=== PATIENT | male | born 2000 | race Caucasian/White ===

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

== ENCOUNTER 2022-10-03 12:52 | Emergency (ER) | payer MEDICAID, OTHER ==
[2022-10-03 13:00] VITALS: BP 130/91
--- OUTSIDE RECORDS SUMMARY | 2022-10-03 13:12 | EXTERNAL MEDICAL SUMMARY RPT | Continuity of Care Document ---
:2000 Author Organization [facility] Address [address] [place] [address] Phone Care Team Providers Name Role Phone Maykel Carter Unavailable Unavailable Allergies No information. Encounters No information. Functional Status No information. Immunizations No information. Medications date description facility [id number] Azithromycin [facility] [id number] Clindamycin Phosphate [facility] [id number] Famotidine [facility] [id number] Loratadine [facility] Problems No information. Procedures No information. Results/Labs test date author facility value unit interpret ation Result panel 1 (unknown) (no (unknown) (unknown) (no value) (units (unk nown) date) unknown) (unknown) (no (unknown) (unknown) [place], [place] (units ( unknown) date) [id number] unknown) (unknown) (no (unknown) (unknown) Draft (units (unkno wn) date) unknown) (unknown) (no (unknown) (unknown) Family Practice (units (unknown) date) Office Visit unknown) (unknown) (no (unknown) (unknown) [facility] (units (unknown) date[facility] unknown) (unknown) (no (unknown) (unknown) (no value) (units (unk nown) date) unknown) (unknown) (no (unknown) (unknown) 07/12/22 (units (unkno wn) date) unknown) (unknown) (no (unknown) (unknown) [id number] (units (unkno wn) date) unknown) (unknown) (no (unknown) (unknown) Age/Sex: 21 / M (units (unknown) date) Date of Service: unknown) (unknown) (no (unknown) (unknown) Attending Dr: (units ( unknown) date) Maykel Carter MD unknown) (unknown) (no (unknown) (unknown) : 2000 (units (unknown) date) Acct:[id number] unknown) (unknown) (no (unknown) (unknown) Dept at (units (unkno wn) date) . unknown) (unknown) (no (unknown) (unknown) Documented By: (units (unknown) date) Maykel Carter MD unknown) 07/12/22 1513 (unknown) (no (unknown) (unknown) Intake (units (unkno wn) date) unknown) (unknown) (no (unknown) (unknown) Intake performed (units (unknown) date) by: unknown) Melissa Fowler (unknown) (no (unknown) (unknown) Intake- Clincial (units (unknown) date) Staff unknown) (unknown) (no (unknown) (unknown) Loc: [facility] (units (unkno wn) date) unknown) (unknown) (no (unknown) (unknown) Patient: (units (unkno wn) date) Ismael Decker unknown) MR#: [id number] (unknown) (no (unknown) (unknown) Reason For Visit (units (unknown) date) unknown) (unknown) (no (unknown) (unknown) Signed By: (units (unk nown) date) unknown) (unknown) (no (unknown) (unknown) This note may (units ( unknown) date) have been all or unknown) partially generated using voice recognition (unknown) (no (unknown) (unknown) 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 (units (unknown) date) If there are any unknown) questions, please contact the Medical Records (unknown) (no (unknown) (unknown) may occur. (units (unk nown) date) Occasional unknown) wrong-word or 'sound-alike' substitutions may have (unknown) (no (unknown) (unknown) occurred due to (units (unknown) date) the inherent unknown) limitations of voice recognition software. Please (unknown) (no (unknown) (unknown) read the note (units ( unknown) date) carefully and unknown) recognize, using context, where these substitutions (unknown) (no (unknown) (unknown) software. (units (unkn own) date) Although every unknown) effort is made to edit content, reject opener and filler errors Result panel 2 (unknown) (no (unknown) (unknown) (no value) (units (unk nown) date) unknown) (unknown) (no (unknown) (unknown) (no value) (units (unk nown) date) unknown) (unknown) (no (unknown) (unknown) (no value) (units (unk nown) date) unknown) (unknown) (no (unknown) (unknown) 07/12/22 (units (unkno wn) date) unknown) (unknown) (no (unknown) (unknown) 15:23 (units (unkno wn) date) unknown) (unknown) (no (unknown) (unknown) [place], [place] (units ( unknown) date) [id number] unknown) (unknown) (no (unknown) (unknown) Draft (units (unkno wn) date) unknown) (unknown) (no (unknown) (unknown) Family Practice (units (unknown) date) Office Visit unknown) (unknown) (no (unknown) (unknown) [facility] (units ([facility] date[facility] unknown) (unknown) (no (unknown) (unknown) (no value) (units (unk nown) date) unknown) (unknown) (no (unknown) (unknown) 07/12/22 (units (unkno wn) date) unknown) (unknown) (no (unknown) (unknown) [id number] (units (unkno wn) date) unknown) (unknown) (no (unknown) (unknown) Accompanied by: (units (unknown) date) Self / Same As unknown) Patient (unknown) (no (unknown) (unknown) Age/Sex: 21 / M (units (unknown) date) Date of Service: unknown) (unknown) (no (unknown) (unknown) Allergies (units (unkn own) date) unknown) (unknown) (no (unknown) (unknown) Attending Dr: (units ( unknown) date) Maykel Carter MD unknown) (unknown) (no (unknown) (unknown) BMI 27.6 (units (unkno wn) date) unknown) (unknown) (no (unknown) (unknown) BP 112/64 (units (unkn own) date) unknown) (unknown) (no (unknown) (unknown) Blood Pressure (units (unknown) date) Location Lt unknown) brachial (unknown) (no (unknown) (unknown) : 2000 (units (unknown) date) Acct:[id number] unknown) (unknown) (no (unknown) (unknown) Dept at (units (unkno wn) date) . unknown) (unknown) (no (unknown) (unknown) Documented By: (units (unknown) date) Maykel Carter MD unknown) 07/12/22 1513 (unknown) (no (unknown) (unknown) Has seen (units (unkno wn) date) dermatology in unknown) the past for this condition, recently got insurance (unknown) (no (unknown) (unknown) Health (units (unkno wn) date) Management unknown) (unknown) (no (unknown) (unknown) Health (units (unkno wn) date) Management unknown) reviewed with patient: No (unknown) (no (unknown) (unknown) Height 5 ft 9 in (units (unknown) date) unknown) (unknown) (no (unknown) (unknown) Intake (units (unkno wn) date) unknown) (unknown) (no (unknown) (unknown) Intake Note: (units (u nknown) date) unknown) (unknown) (no (unknown) (unknown) Intake performed (units (unknown) date) by: unknown) Melissa Fowler (unknown) (no (unknown) (unknown) Intake- Clincial (units (unknown) date) Staff unknown) (unknown) (no (unknown) (unknown) Loc: [facility] (units (unkno wn) date) unknown) (unknown) (no (unknown) (unknown) Medications (units (un known) date) unknown) (unknown) (no (unknown) (unknown) 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 ( unknown) date) presents today to unknown) establish care and requesting dermatology (unknown) (no (unknown) (unknown) No Known Drug (units ( unknown) date) Allergies Allergy unknown) (Unverified 07/12/22 15:22) (unknown) (no (unknown) (unknown) No Known Home (units ( unknown) date) Medications unknown) 07/12/22 [History Confirmed 07/12/22] (unknown) (no (unknown) (unknown) Oxygen Delivery (units (unknown) date) Method room air unknown) (unknown) (no (unknown) (unknown) PFSH (units (unkno wn) date) unknown) (unknown) (no (unknown) (unknown) Patient: (units (unkno wn) date) Ismael Decker unknown) MR#: [id number] (unknown) (no (unknown) (unknown) Position Sitting (units (unknown) date) unknown) (unknown) (no (unknown) (unknown) Pulse 80 (units (unkno wn) date) unknown) (unknown) (no (unknown) (unknown) Pulse Oximetry (units (unknown) date) (%) 98 unknown) (unknown) (no (unknown) (unknown) Pulse Source (units (u nknown) date) Monitor unknown) (unknown) (no (unknown) (unknown) Reason For Visit (units (unknown) date) unknown) (unknown) (no (unknown) (unknown) Respiration 16 (units (unknown) date) unknown) (unknown) (no (unknown) (unknown) Signed By: (units (unk nown) date) unknown) (unknown) (no (unknown) (unknown) Smoking Status: (units (unknown) date) Never smoker unknown) (unknown) (no (unknown) (unknown) States when he (units (unknown) date) takes a hot unknown) shower or when outside temp is cold (winter) he (unknown) (no (unknown) (unknown) Temp 97.1 F L (units ( unknown) date) unknown) (unknown) (no (unknown) (unknown) Temp Source (units (un known) date) Temporal Artery unknown) Scan (unknown) (no (unknown) (unknown) This note may (units ( unknown) date) have been all or unknown) partially generated using voice recognition (unknown) (no (unknown) (unknown) Tobacco + (units (unkn own) date) Substance Use unknown) (unknown) (no (unknown) (unknown) Tobacco Status (units (unknown) date) unknown) (unknown) (no (unknown) (unknown) Visit Reasons: (units (unknown) date) RESIDENT CAREGIVER,Acne, unknown) Dermatology referral (unknown) (no (unknown) (unknown) Vitals (units (unkno wn) date) unknown) (unknown) (no (unknown) (unknown) Weight 187 lb 4 (units (unknown) date) oz unknown) (unknown) (no (unknown) (unknown) alcohol intake: (units (unknown) date) current (1 drink unknown) every 2 years socially ) (unknown) (no (unknown) (unknown) develops hives (units (unknown) date) unknown) (unknown) (no (unknown) (unknown) have occurred. (units (unknown) date) If there are any unknown) questions, please contact the Medical Records (unknown) (no (unknown) (unknown) may occur. (units (unk nown) date) Occasional unknown) wrong-word or 'sound-alike' substitutions may have (unknown) (no (unknown) (unknown) occurred due to (units (unknown) date) the inherent unknown) limitations of voice recognition software. Please (unknown) (no (unknown) (unknown) read the note (units ( unknown) date) carefully and unknown) recognize, using context, where these substitutions (unknown) (no (unknown) (unknown) referral for (units (u nknown) date) acne unknown) (unknown) (no (unknown) (unknown) software. (units (unkn own) date) Although every unknown) effort is made to edit content, reject opener and filler errors (unknown) (no (unknown) (unknown) substance use (units (u nknown) date) type: former unknown) substance user (Quit 2020 ) and marijuana (Quit 2020) Result panel 3 (unknown) (no (unknown) (unknown) (no value) (units (unk nown) date) unknown) (unknown) (no (unknown) (unknown) Medications: (units (u nknown) date) unknown) (unknown) (no (unknown) (unknown) Orders: (units (unkno wn) date) unknown) (unknown) (no (unknown) (unknown) Status: Acute (units ( unknown) date) unknown) (unknown) (no (unknown) (unknown) (no value) (units (unk nown) date) unknown) (unknown) (no (unknown) (unknown) (no value) (units (unk nown) date) unknown) (unknown) (no (unknown) (unknown) 07/12/22 (units (unkno wn) date) unknown) (unknown) (no (unknown) (unknown) 07/18/22 0907 (units ( unknown) date) unknown) (unknown) (no (unknown) (unknown) 15:23 (units (unkno wn) date) unknown) (unknown) (no (unknown) (unknown) [facility] [id number] (unit s (unknown) date) unknown) (unknown) (no (unknown) (unknown) Family Practice (units (unknown) date) Office Visit unknown) (unknown) (no (unknown) (unknown) [facility] ([facility] unknown) (unknown) (no (unknown) (unknown) Signed (units (unkno wn) date) unknown) (unknown) (no (unknown) (unknown) apply each night (units (unknown) date) instead of benzoyl unknown) peroxide; use for 2 weeks straight as (unknown) (no (unknown) (unknown) apply to affected (units (unknown) date) areas in morning at unknown) minimum and could increase to twice (unknown) (no (unknown) (unknown) don't start until (units (unknown) date) after at least 1 unknown) week on antibiotic by mouth for acne; will (unknown) (no (unknown) (unknown) (no value) (units (unk nown) date) unknown) (unknown) (no (unknown) (unknown) (1) Chronic (units (un known) date) urticaria: unknown) (unknown) (no (unknown) (unknown) 07/12/22 (units (unkno wn) date) unknown) (unknown) (no (unknown) (unknown) 07/12/22 [Rx (units (u nknown) date) Confirmed 07/12/22] unknown) (unknown) (no (unknown) (unknown) 21-year-old male (units (unknown) date) with marked acne unknown) involving the face. Previous history on a (unknown) (no (unknown) (unknown) [id number] (units (unkno wn) date) unknown) (unknown) (no (unknown) (unknown) Accompanied by: (units (unknown) date) Self / Same As unknown) Patient (unknown) (no (unknown) (unknown) Acne vulgaris (units ( unknown) date) unknown) (unknown) (no (unknown) (unknown) Acne. Multiple past (unit s (unknown) date) treatment modalities unknown) either temporarily helpful or failed. (unknown) (no (unknown) (unknown) Age/Sex: 21 / M (units (unknown) date) Date of Service: unknown) (unknown) (no (unknown) (unknown) Alert, pleasant, no (unit s (unknown) date) distress. Classic unknown) papular facial acne with some scarring. (unknown) (no (unknown) (unknown) Allergies (units (unkn own) date) unknown) (unknown) (no (unknown) (unknown) Assessment + Plan (units (unknown) date) unknown) (unknown) (no (unknown) (unknown) Attending Dr: Maykel (units (unknown) date) Sachi Carter MD unknown) (unknown) (no (unknown) (unknown) BEDTIME 45 grams (units (unknown) date) 3RF unknown) (unknown) (no (unknown) (unknown) BMI 27.6 (units (unkno wn) date) unknown) (unknown) (no (unknown) (unknown) BP 112/64 (units (unkn own) date) unknown) (unknown) (no (unknown) (unknown) Blood Pressure (units (unknown) date) Location Lt brachial unknown) (unknown) (no (unknown) (unknown) Chief Complaint (units (unknown) date) unknown) (unknown) (no (unknown) (unknown) Chief Complaint: (units (unknown) date) Acne unknown) (unknown) (no (unknown) (unknown) Chronic urticaria (units (unknown) date) unknown) (unknown) (no (unknown) (unknown) : 2000 (units (unknown) date) Acct:[id number] unknown) (unknown) (no (unknown) (unknown) Dept at (units (unkno wn) date) . unknown) (unknown) (no (unknown) (unknown) Details: (units (unkno wn) date) unknown) (unknown) (no (unknown) (unknown) Discussed options (units (unknown) date) awaiting Dermatology unknown) referral. For now will go with (unknown) (no (unknown) (unknown) Documented By: (units (unknown) date) Maykel Carter MD unknown) 07/12/22 1513 (unknown) (no (unknown) (unknown) Exam (units (unkno wn) date) unknown) (unknown) (no (unknown) (unknown) Exam Narrative (units (unknown) date) unknown) (unknown) (no (unknown) (unknown) Exam Narrative: (units (unknown) date) unknown) (unknown) (no (unknown) (unknown) HPI (units (unkno wn) date) unknown) (unknown) (no (unknown) (unknown) Has seen (units (unkno wn) date) dermatology in the unknown) past for this condition, recently got insurance (unknown) (no (unknown) (unknown) Health Management (units (unknown) date) unknown) (unknown) (no (unknown) (unknown) Health Management (units (unknown) date) reviewed with unknown) patient: No (unknown) (no (unknown) (unknown) Height 5 ft 9 in (units (unknown) date) unknown) (unknown) (no (unknown) (unknown) Intake (units (unkno wn) date) unknown) (unknown) (no (unknown) (unknown) Intake Note: (units (u nknown) date) unknown) (unknown) (no (unknown) (unknown) Intake performed (units (unknown) date) by: Melissa Fowler unknown) (unknown) (no (unknown) (unknown) Intake- Clincial (units (unknown) date) Staff unknown) (unknown) (no (unknown) (unknown) Loc: [facility] (units (unkno wn) date) unknown) (unknown) (no (unknown) (unknown) Medical History (units (unknown) date) (Updated 07/12/22 @ unknown) 16:13 by Maykel Carter MD) (unknown) (no (unknown) (unknown) Medications (units (un known) date) unknown) (unknown) (no (unknown) (unknown) 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 For his chronic urticaria could try (unknown) (no (unknown) (unknown) Patient: (units (unkno wn) date) Ismael Decker MR#: unknown) [id number] (unknown) (no (unknown) (unknown) Plan (units (unkno wn) date) unknown) (unknown) (no (unknown) (unknown) Position Sitting (units (unknown) date) unknown) (unknown) (no (unknown) (unknown) Pulse 80 (units (unkno wn) date) unknown) (unknown) (no (unknown) (unknown) Pulse Oximetry (%) (units (unknown) date) 98 unknown) (unknown) (no (unknown) (unknown) Pulse Source (units (u nknown) date) Monitor unknown) (unknown) (no (unknown) (unknown) Reason For Visit (units (unknown) date) unknown) (unknown) (no (unknown) (unknown) Referral Allergy (units (unknown) date) and Immunology L50.8 unknown) - Other urticaria (unknown) (no (unknown) (unknown) Referral (units (unkno wn) date) Dermatology L70.0 - unknown) Acne vulgaris (unknown) (no (unknown) (unknown) Referrals (units (unkn own) date) unknown) (unknown) (no (unknown) (unknown) Respiration 16 (units (unknown) date) unknown) (unknown) (no (unknown) (unknown) Signed By: (units (unk nown) date) <Electronically unknown) signed by Maykel Carter MD> (unknown) (no (unknown) (unknown) Small pinpoint (units (unknown) date) papules with some unknown) surrounding erythema. No apparent hives on (unknown) (no (unknown) (unknown) Smoking Status: (units (unknown) date) Never smoker unknown) (unknown) (no (unknown) (unknown) States when he (units (unknown) date) takes a hot shower unknown) or when outside temp is cold (winter) he (unknown) (no (unknown) (unknown) Temp 97.1 F L (units ( unknown) date) unknown) (unknown) (no (unknown) (unknown) Temp Source (units (un known) date) Temporal Artery Scan unknown) (unknown) (no (unknown) (unknown) This note may have (units (unknown) date) been all or unknown) partially generated using voice recognition (unknown) (no (unknown) (unknown) Tobacco + Substance (unit s (unknown) date) Use unknown) (unknown) (no (unknown) (unknown) Tobacco Status (units (unknown) date) unknown) (unknown) (no (unknown) (unknown) Visit Reasons: (units (unknown) date) RESIDENT CAREGIVER,Acne, Dermatology unknown) referral (unknown) (no (unknown) (unknown) Vitals (units (unkno wn) date) unknown) (unknown) (no (unknown) (unknown) Weight 187 lb 4 oz (units (unknown) date) unknown) (unknown) (no (unknown) (unknown) a regular rhythm (units (unknown) date) without obvious unknown) murmur gallop. (unknown) (no (unknown) (unknown) alcohol intake: (units (unknown) date) current (1 drink unknown) every 2 years socially ) (unknown) (no (unknown) (unknown) clindamycin (units (un known) date) phosphate 1 % unknown) topical solution 1 applic topical BID acne #60 mL (unknown) (no (unknown) (unknown) clindamycin (units (un known) date) phosphate 1% unknown) (unknown) (no (unknown) (unknown) clindamycin topical (unit s (unknown) date) and topical unknown) retinoid. Possible side effects discussed. (unknown) (no (unknown) (unknown) daily; use for 2 (units (unknown) date) weeks straight then unknown) up to twice daily as needed for acne; put (unknown) (no (unknown) (unknown) develops hives (units (unknown) date) unknown) (unknown) (no (unknown) (unknown) exposed, examined (units (unknown) date) surfaces today. unknown) Cardiorespiratory benign with clear lungs and (unknown) (no (unknown) (unknown) famotidine (units (unk nown) date) (Zantac-360 unknown) (famotidine)) (unknown) (no (unknown) (unknown) famotidine 20 mg (units (unknown) date) tablet (Zantac-360 unknown) (famotidine)) 20 mg PO BEDTIME #30 tabs (unknown) (no (unknown) (unknown) for Dermatology (units (unknown) date) referral for unknown) possible restart to oral retinoid. Also, of note, (unknown) (no (unknown) (unknown) frequent or severe (units (unknown) date) 10 mg PO DAILY 30 unknown) tabs 0RF (unknown) (no (unknown) (unknown) have occurred. If (units (unknown) date) there are any unknown) questions, please contact the Medical Records (unknown) (no (unknown) (unknown) histamine blockade (units (unknown) date) with H1 and H2 unknown) blockers as noted herein. Patient to keep (unknown) (no (unknown) (unknown) history of chronic (units (unknown) date) urticaria with no unknown) clear precipitant(s). Markedly pruritic (unknown) (no (unknown) (unknown) hives less frequent (unit s (unknown) date) or severe 20 mg PO unknown) BEDTIME 30 tabs 0RF (unknown) (no (unknown) (unknown) loratadine (units (unk nown) date) unknown) (unknown) (no (unknown) (unknown) loratadine 10 mg (units (unknown) date) tablet 10 mg PO unknown) DAILY #30 tabs 07/12/22 [Rx Confirmed 07/12/22] (unknown) (no (unknown) (unknown) may occur. (units (unk nown) date) Occasional unknown) wrong-word or 'sound-alike' substitutions may have (unknown) (no (unknown) (unknown) mg PO DAILY 30 tabs (unit s (unknown) date) 0RF unknown) (unknown) (no (unknown) (unknown) obvious food (units (u nknown) date) allergies. No report unknown) of rachel angioedema. (unknown) (no (unknown) (unknown) occurred due to the (unit s (unknown) date) inherent limitations unknown) of voice recognition software. Please (unknown) (no (unknown) (unknown) on before retin A (units (unknown) date) equivalent 1 applic unknown) topical BID 60 mL 3RF acne (unknown) (no (unknown) (unknown) oral retinoid. Some (unit s (unknown) date) scarring. unknown) Progressive or recurring despite above. Asks (unknown) (no (unknown) (unknown) physical when due. (units (unknown) date) unknown) (unknown) (no (unknown) (unknown) read the note (units ( unknown) date) carefully and unknown) recognize, using context, where these substitutions (unknown) (no (unknown) (unknown) referral for acne (units (unknown) date) unknown) (unknown) (no (unknown) (unknown) software. Although (units (unknown) date) every effort is made unknown) to edit content, reject opener and filler errors (unknown) (no (unknown) (unknown) substance use type: (units (unknown) date) former substance unknown) user (Quit 2020 ) and marijuana (Quit 2020) (unknown) (no (unknown) (unknown) track of episodes. (units (unknown) date) Referring to unknown) Dermatology and Allergy and Immunology. Annual (unknown) (no (unknown) (unknown) tretinoin 0.025 % (units (unknown) date) topical gel unknown) (Retin-A) 1 applic topical BEDTIME #45 grams (unknown) (no (unknown) (unknown) tretinoin 0.025% (units (unknown) date) (Retin-A) unknown) (unknown) (no (unknown) (unknown) trial; put this one (unit s (unknown) date) on after clindamycin unknown) antibiotic if used 1 applic topical (unknown) (no (unknown) (unknown) try this for 1 (units (unknown) date) month total (along unknown) with zantac) to see if recurring hives less (unknown) (no (unknown) (unknown) try this for 1 (units (unknown) date) month total (also unknown) prescribed loratidine) to see if recurring (unknown) (no (unknown) (unknown) try this for 1 (units (unknown) date) month total to see unknown) if recurring hives less frequent or severe 20 (unknown) (no (unknown) (unknown) variety of (units (unk nown) date) treatments including unknown) topical and oral antibiotic, topical retinoid, (unknown) (no (unknown) (unknown) with erythematous (units (unknown) date) and raised rash at unknown) times. Some environmental allergens. No Social History date description facility +0000 Never smoked tobacco (finding) [facility] Vital Signs date measurement value units +0000 BMI BMI 27.6 kg/m2 [id number] BP_diastolic BP_diastolic 64 mmHg [id number] BP_systolic BP_systolic 112 mmHg [id number] heart_rate heart_rate 80 /min [id number] height_metric height_metric 175.26 cm [id number] height_standard height_standard 69 in [id number] respiration_rate respiration_rate 16 /min [id number]+0000 temperature_metric temperature_metric 36.17 C [id number]+0000 temperature_standard temperature_standard 9 7.1 F [id number]+0000 weight_metric weight_metric 84.93 kg [id number] weight_standard weight_standard 187.24 lb
--- NOTE | 2022-10-03 13:59 | ED Physician Documentation ---
PD HPI SKIN - Stated complaint Stated Complaint: Rash - Chief complaint Chief Complaint: Wound - History obtained from History obtained from: Patient - Additional information Additional information: Patient is a 21-year-old male presenting for evaluation of a rash that has been present to his collar and neck starting approximately 3 days ago. He denies any known new exposures denies wearing any jewelry including necklaces. He has tried hydrocortisone cream without any improvement. The redness has seemed to increase. He denies redness or itchiness elsewhere. He Has applied ydud-aif-kclcbgh lotion to it because it did feel dry and was itching. Review of Systems Constitutional: denies: Fever Cardiac: denies: Chest pain / pressure Respiratory: denies: Dyspnea GI: denies: Abdominal Pain Skin: reports: Rash Musculoskeletal: denies: Back pain Neurologic: denies: Headache PD PAST MEDICAL HISTORY - Past Medical History Endocrine/Autoimmune: None - Past Surgical History Past Surgical History: No - Present Medications Home Medications: Ambulatory Orders Medication Instructions Recorded Confirmed diphenhydrAMINE [Benadryl] 25 - 50 mg PO Q6HR PRN #20 cap 10/03/22 predniSONE [Deltasone] 40 mg PO DAILY 5 Days #10 tablet 10/03/22 - Allergies Allergies/Adverse Reactions: Allergies Allergy/AdvReac Type Severity Reaction Status Date / Time No Known Drug Allergies Allergy Verified 08/01/19 20:28 - Social History Does the pt smoke?: No Smoking Status: Never smoker Does the pt drink ETOH?: No - Immunizations Immunizations are current?: Yes PD ED PE NORMAL - General General: Alert and oriented X 3, No acute distress, Well developed/nourished - HEENT HEENT: Atraumatic, Moist mucous membranes, Pharynx benign - Neck Neck: Supple, no meningeal sign - Respiratory Respiratory: No respiratory distress - Derm Derm: Other (Dry erythematous rash to anterior neck with few areas of excoriations, no hives, no bulla, no weeping) - Neuro Neuro: Normal speech Results - Vitals Vitals: Vital Signs - 24 hr 10/03/22 12:56 Temperature 36.5 C Heart Rate 73 Respiratory 18 Rate Blood Pressure 130/91 H O2 Saturation 98 Oxygen O2 Source Room air PD MEDICAL DECISION MAKING - ED course ED course: Patient with rash to anterior neck of unclear etiology. It does not appear to be infected. Does not appear to be viral in nature. Patient does report itchiness to it and It has increased since onset. It has not improved with topical hydrocortisone. We will give patient a short steroid course and recommend Benadryl for itching. Patient counseled on concerning symptoms to return for as well as need for follow-up if there is no improvement. Departure - Departure Disposition: 01 Home, Self Care Clinical Impression: Dermatitis Condition: Stable Instructions: ED Dermatitis Non Specific Rash Prescriptions: diphenhydrAMINE [Benadryl] 25 - 50 mg PO Q6HR PRN #20 cap PRN Reason: Itching predniSONE [Deltasone] 40 mg PO DAILY 5 Days #10 tablet Comments: You were evaluated for a rash to your neck area. At the exact etiology of this rash is unclear but does have components to suggest an allergic process. I have started you on a prednisone and Benadryl to see if this will help with the rash. I have sent your prescriptions to [facility] in [place]. I would not use any [id number]-[id number] lotions or creams as they may contain other components that could irritate this further.If the rash is not improving I would follow-up with her primary care doctor or to the walk-in clinic as you may need a dermatology referral. If you have any worsening symptoms please consider return to the ER. Discharge Date/Time: 10/03/22 14:04
== END 2022-10-03 14:04 | disposition home or self-care (01) ==
LOC: ED 12:52
DX: L30.9 Dermatitis, unspecified (principal)
CPT/HCPCS: 99282